=== PATIENT | female | born 1980 | race Caucasian/White ===

== ENCOUNTER 2022-05-24 13:09 | Emergency (ER) | payer BC | END 2022-05-24 14:57 | disposition home or self-care (01) | LOC: JD.ED 13:09 | DX: S40.011A Contusion of right shoulder, initial encounter (principal); V80.010A Animal-rider injured by fall from or being thrown from horse in noncollision accident, initial encounter | CPT/HCPCS: 73030-26-RT; 73030-RT; 99282; 99283 ==